=== PATIENT | male | born 2000 | race African-American/Black ===

== ENCOUNTER 2021-04-09 21:24 | Emergency (ER) | payer MEDICAID ==
[~2021-04-09] VITALS: Ht 177.8 cm; Wt 66.0 kg
[2021-04-09] MEDS: MORPHINE SULFATE 4 MG/ML CPJ (NOT FOR IM USE) IV ONE ×2 (21:30→23:15)
[2021-04-09] MEDS: CEFAZOLIN 1000MG PREMIX 50 ML IV ONE (22:21)
[2021-04-09] MEDS: MORPHINE SULFATE 2 MG/ML CPJ (NOT FOR IM USE) IV NR ×2 (22:23→23:46)
[2021-04-09] MEDS: ONDANSETRON HCL 4MG/2ML INJ IV ONE (22:24)
[2021-04-09] MEDS: TETANUS, DIPHTHERIA, PERTUSSIS VAC/PF 0.5ML (>10YR OLD) IM ONE (22:24)
[2021-04-09 22:34] LABS: BASOPHILS % 0.6 % (0.0-2.0); EOSINOPHILS % 0.5 % (0.0-5.0); HEMATOCRIT. 42.2 % (42.0-52.0); LYMPHOCYTES % 12.9 % (20.0-50.0); MEAN CORPUSCULAR HEMOGLOBIN 29.5 pg (28.0-32.0); MEAN CORPUSCULAR VOLUME 88.9 fL (80.0-94.0); MEAN PLATELET VOLUME 8.9 fl (7.4-10.4); MONOCYTES % 7.2 % (2.0-8.0); NEUTROPHILS % 78.8 % (40.0-76.0); PLATELET 294 x1000/uL (130-400); RED BLOOD CELL COUNT 4.75 mill/uL (4.7-6.1)
[2021-04-09 22:39] LABS: CHLORIDE 108 mEq/L (98-107)
[2021-04-09 22:42] LABS: INR 1.1; PROTHROMBIN TIME 11.5 sec (9.6-11.0)
[2021-04-10 01:17] VITALS: BP 120/72
== END 2021-04-10 01:29 | disposition short-term general hospital (02) ==
LOC: ER 21:24
DX: S52.292A Other fracture of shaft of left ulna, initial encounter for closed fracture (principal); S52.092A Other fracture of upper end of left ulna, initial encounter for closed fracture; W34.09XA Accidental discharge from other specified firearms, initial encounter; Y93.89 Activity, other specified; Y92.89 Other specified places as the place of occurrence of the external cause; Y99.8 Other external cause status
CPT/HCPCS: 36415; 73080; 73090; 80053; 85025; 85610; 90715; 96365; 99291; A4217; J0690; J2270; J2405